=== PATIENT | female | born 1980 | race Asian ===

== ENCOUNTER 2018-06-25 22:32 | Inpatient (IN) | payer OTHER ==
[~2018-06-25] VITALS: Ht 154.9 cm; Wt 101.4 kg
[2018-06-25 22:39] VITALS: BP 123/76
[2018-06-25] MEDS ORDERED: OXYTOCIN 30U/ 0.9% NaCL 500ML 500 ML IV ONE (23:56)
[2018-06-25] MEDS ORDERED: D5%-LACTATED RINGERS 1,000 ML IV SCH (23:56)
[2018-06-25] MEDS ORDERED: LACTATED RINGERS 1,000 ML IV SCH (23:56)
[2018-06-26] MEDS ORDERED: CALCIUM CARBONATE 500 MG TAB.CHEW PO PRN
[2018-06-26] MEDS ORDERED: ONDANSETRON 2MG/ML, 2ML IVPush PRN
[2018-06-26] MEDS ORDERED: METOCLOPRAMIDE 5 MG/ML, 2ML IVPush PRN
[2018-06-26] MEDS ORDERED: SODIUM CITRATE/CITRIC ACID 30 ML UDC PO PRN
[2018-06-26] MEDS ORDERED: TERBUTALINE 1 MG/ML, 1ML IVPush PRN
[2018-06-26] MEDS ORDERED: FENTANYL PF 100 MCG/2ML IVPush PRN
[2018-06-26] MEDS ORDERED: FENTANYL PF 100 MCG/2ML IV PRN
[2018-06-26] MEDS ORDERED: MISOPROSTOL 200 MCG TABLET ONE (00:01)
[2018-06-26 00:20] LABS: BASOPHILS # (AUTO) 0.05 x10^3/uL (0-0.1); BASOPHILS % (AUTO) 1 % (0-1); EOSINOPHILS # (AUTO) 0.08 x10^3/uL (0-0.4); EOSINOPHILS % (AUTO) 1 % (1-7); LYMPHOCYTES # (AUTO) 2.09 x10^3/uL (1-3.4); LYMPHOCYTES % (AUTO) 21 % (22-44); MD NO; MEAN CORPUSCULAR HEMOGLOBIN 28.7 pg (27.0-34.8); MEAN CORPUSCULAR HGB CONC 34.3 g/dL (32.4-35.8); MEAN CORPUSCULAR VOLUME 83.5 fL (80-100); MEAN PLATELET VOLUME 8.1 fL (7.4-10.4); MONOCYTES # (AUTO) 1.09 x10^3/uL (0.2-0.8); MONOCYTES % (AUTO) 11 % (2-9); NEUTROPHILS # (AUTO) 6.89 x10^3/uL (1.8-6.8); NEUTROPHILS % (AUTO) 68 % (42-75); PLATELET COUNT 339 x10^3/uL (130-400); RED BLOOD COUNT 4.49 x10^6/uL (3.82-5.3); RED CELL DISTRIBUTION WIDTH 13.6 % (9.6-15.2)
[2018-06-26] MEDS ORDERED: FENTANYL PF 100 MCG/2ML ONE (02:22)
[2018-06-26] MEDS ORDERED: FENTANYL/BUPIV./NS/PF 250 ML EPIDCONT SCH ×2 (04:01→04:54)
[2018-06-26] MEDS ORDERED: BUPIVACAINE 0.25% ONE (04:30)
[2018-06-26] MEDS ORDERED: LIDOCAINE/PF 1.5%-EPI 1:200K, 30ML ONE (04:35)
[2018-06-26] MEDS ORDERED: LACTATED RINGERS 1,000 ML IV SCH (04:54)
[2018-06-26] MEDS ORDERED: EPHEDRINE 50 MG/ML, 1ML IVPush PRN (05:00)
[2018-06-26] MEDS ORDERED: LACTATED RINGERS 1,000 ML IVBOLUS PRN (05:00)
[2018-06-26] MEDS ORDERED: OXYTOCIN 30U/ 0.9% NaCL 500ML 500 ML ONE ×2 (08:59)
[2018-06-26] MEDS: OXYTOCIN 30U/ 0.9% NaCL 500ML 500 ML IV SCH ×2 (09:45→19:35)
[2018-06-26] MEDS ORDERED: ACETAMINOPHEN 325 MG TABLET PO PRN (10:00)
[2018-06-26] MEDS ORDERED: OXYcodone/APAP 5/325MG TABLET PO PRN ×2 (10:00)
[2018-06-26] MEDS ORDERED: MISOPROSTOL 200 MCG TABLET PO PRN (10:00)
[2018-06-26] MEDS ORDERED: METHYLERGONOVINE 0.2 MG/ML IM PRN (10:00)
[2018-06-26] MEDS ORDERED: ONDANSETRON 2MG/ML, 2ML IV PRN (10:00)
[2018-06-26 10:45] VITALS: BP 107/70
[2018-06-26] MEDS ORDERED: DIPH,PERTUSS(ACELL),TET VAC/PF NC IM-VACC ONE (12:30)
[2018-06-26 15:00] VITALS: BP 118/76
[2018-06-26] MEDS: IBUPROFEN 600 MG TABLET PO PRN (19:09)
[2018-06-26] MEDS: DOCUSATE 100 MG CAPSULE PO PRN (19:09)
[2018-06-26 19:20] VITALS: BP 104/66
[2018-06-26 19:22] LABS: MEAN CORPUSCULAR HEMOGLOBIN 28.9 pg (27.0-34.8); MEAN CORPUSCULAR HGB CONC 34.5 g/dL (32.4-35.8); MEAN CORPUSCULAR VOLUME 83.6 fL (80-100); MEAN PLATELET VOLUME 7.7 fL (7.4-10.4); PLATELET COUNT 304 x10^3/uL (130-400); RED BLOOD COUNT 4.05 x10^6/uL (3.82-5.3); RED CELL DISTRIBUTION WIDTH 13.9 % (9.6-15.2)
[2018-06-26 19:41] LABS: BASOPHILS # (AUTO) 0.09 x10^3/uL (0-0.1); BASOPHILS % (AUTO) 1 % (0-1); EOSINOPHILS # (AUTO) 0.03 x10^3/uL (0-0.4); EOSINOPHILS % (AUTO) 0 % (1-7); LYMPHOCYTES # (AUTO) 2.43 x10^3/uL (1-3.4); LYMPHOCYTES % (AUTO) 12 % (22-44); MD SCAN; MONOCYTES % (AUTO) 6 % (2-9); NEUTROPHILS # (AUTO) 15.84 x10^3/uL (1.8-6.8); NEUTROPHILS % (AUTO) 81 % (42-75)
[2018-06-26] MEDS ORDERED: ENOXAPARIN 40 MG/0.4 ML SQ SCH (21:00)
[2018-06-27 00:04] VITALS: BP 110/70
[2018-06-27 04:45] VITALS: BP 115/74
[2018-06-27] MEDS: OXYTOCIN 30U/ 0.9% NaCL 500ML 500 ML IV SCH (05:30)
[2018-06-27 07:30] VITALS: BP 112/71
[2018-06-27 07:38] LABS: CREATININE 0.51 mg/dL (0.55-1.02)
[2018-06-27] MEDS: DOCUSATE 100 MG CAPSULE PO PRN (07:42)
[2018-06-27] MEDS: IBUPROFEN 600 MG TABLET PO PRN (07:42)
[2018-06-27] MEDS ORDERED: IBUP-1222 PO (08:52)
[2018-06-27] MEDS ORDERED: PRENATAL VIT/IRON/FA 1 EACH TABLET PO SCH (09:00)
== END 2018-06-27 11:00 | disposition home or self-care (01) | DRG 806 ==
LOC: LDOP 22:32 → LDIP 06-26 00:02 → 2NW 06-26 10:37
PROVIDERS: ADMIT Obstetrics & Gynecology; ATTEND Obstetrics & Gynecology
PROC: 10E0XZZ Delivery of Products of Conception, External Approach (ICD-10-PCS; principal; 2018-06-26)
PROC: 0W8NXZZ Division of Female Perineum, External Approach (ICD-10-PCS; 2018-06-26)
PROC: 3E0R3BZ Introduction of Anesthetic Agent into Spinal Canal, Percutaneous Approach (ICD-10-PCS; 2018-06-26)
PROC: 00HU33Z Insertion of Infusion Device into Spinal Canal, Percutaneous Approach (ICD-10-PCS; 2018-06-26)
DX: O99.824 Streptococcus B carrier state complicating childbirth (principal); O98.42 Viral hepatitis complicating childbirth; Z37.0 Single live birth; B18.1 Chronic viral hepatitis B without delta-agent; O77.0 Labor and delivery complicated by meconium in amniotic fluid; O69.1XX0 Labor and delivery complicated by cord around neck, with compression, not applicable or unspecified; Z3A.39 39 weeks gestation of pregnancy
CPT/HCPCS: 36415; 82565; 82803; 85025; 86850; 86900; 89060; 90715; G0378; J1650; J3010; J3490; J2590; J7120; Q0114